=== PATIENT | male | born 1960 | race Caucasian/White ===

== ENCOUNTER 2024-01-11 01:13 | Emergency (ER) | payer MEDICARE, SELFPAY ==
--- NOTE | ~2024-01-11 | XR_ITS ---
EXAMINATION: XR chest 1V portable DATE: 01/11/2024 02:00 INDICATION: Weakness. TECHNIQUE: A single frontal view of the chest was obtained. COMPARISON: None. FINDINGS: There are airspace opacities in the lower lung zones. No pleural effusion or pneumothorax. The heart size is normal. IMPRESSION: 1. Airspace opacities in the lower lung zones, consistent with atelectasis versus pneumonia. Reviewed, dictated and finalized at location A. IMPRESSION: 1. Airspace opacities in the lower lung zones, consistent with atelectasis vers us pneumonia.
[2024-01-11 01:15] VITALS: BP 112/77; PULSE 103; RESP 17; TEMP 36.7; O2SAT 96
[2024-01-11] MEDS: SODIUM CHLORIDE 0.9% IV 1,000 ML 999 ML IV CONT (01:32)
[2024-01-11 01:38] LABS: Basophils Absolute Auto 0.1 K/mm3 (0.0-0.1); Basophils Percent Auto 0.8 % (0.2-1.2); Eosinophils Absolute Auto 0.1 K/mm3 (0-0.3); Eosinophils Percent Auto 0.7 % (0-4.4); Hematocrit 40.1 % (42.0-52.0); Hemoglobin 13.4 g/dL (14.0-18.0); Immature Granulocyte Absolute 0.15 K/mm3 (0.00-0.031); Immature Granulocyte Percent A 1.6 % (0-0.5); Lymphocytes Absolute Auto 3.17 K/mm3 (0.9-3.2); Lymphocytes Percent Auto 34.4 % (18.3-44.2); Mean Corpuscular HGB Conc 33.4 g/dl (32-36); Mean Corpuscular Hemoglobin 31.4 pg (26-34); Mean Corpuscular Volume 93.9 fl (80-100); Monocytes Absolute Auto 1.2 K/mm3 (0.1-0.6); Monocytes Percent Auto 12.7 % (2.6-8.5); Neutrophils Absolute Auto 4.6 K/mm3 (1.3-6.7); Neutrophils Percent Auto 49.8 % (45.5-73.1); Platelet Count Result 163 k/mm3 (150-375); Red Blood Count 4.27 M/mm3 (4.6-6.20); Red Cell Distribution Width 12.9 % (11.5-14.5); White Blood Count 9.2 K/mm3 (4.5-10.0)
[2024-01-11 01:48] LABS: Alanine Aminotransferase 35 U/L (6-50); Albumin Level 4.3 g/dL (3.5-5.1); Alkaline Phosphatase 82 U/L (38-126); Anion Gap 10 mmol/L (4-12); Aspartate Amino Transferase 25 U/L (17-59); Bilirubin,Total 0.5 mg/dL (0.2-1.3); Blood Urea Nitrogen 22 mg/dL (9-20); Calcium 9.9 mg/dL (8.4-10.2); Carbon Dioxide 27 mmol/L (22-30); Chloride 96 mmol/L (98-107); Estimated CRCL calculation 65 ml/min; Estimated Glomerular Filt Rate 56; Glucose 223 mg/dL (65-110); Magnesium 2.4 mg/dL (1.6-2.3); Potassium 4.7 mmol/L (3.4-5.0); Sodium 133 mmol/L (137-145)
[2024-01-11 02:13] LABS: Influenza A QL RT-PCR Negative (Negative); Influenza B QL RT-PCR Negative (Negative); SARS-CoV-2 RNA PCR Negative (Negative)
--- NOTE | 2024-01-11 02:22 | ED_ITS ---
HPI - General Adult General Chief complaint: Weakness Stated complaint: weakness Time Seen by Provider: 01/11/24 01:22 History of Present Illness HPI narrative: Patient is a 63-year-old male who presents to the emergency department this evening from his long term facility due to generalized weakness. Patient told the long term staff that he was feeling a little dizzy and weak. senior living staff states that patient usually gets like this after he takes his nightly medications but patient wanted to come to the emergency department and be evaluated. Patient was recently seen at [place] for the same symptoms and a full workup revealed no acute process. Patient is currently denying any pain including chest pain, denies any shortness of breath, denies any nausea vomiting or abdominal pain, denies any dysuria or hematuria, denies any headaches, room spinning sensation, near syncopal episodes, and is moving all 4 extremities spontaneously. There are no additional modifying, alleviating, or precipitating factors at this time. Related Data Home Medications Medication Instructions Recorded Confirmed haloperidol decanoate 100 mg/mL 50 mg IM .COMPLEX 04/10/19 09/22/21 intramuscular solution (Haldol Decanoate) lisinopril 20 mg tablet 20 mg PO DAILY 04/10/19 09/22/21 quetiapine 400 mg tablet 400 mg PO BID 04/10/19 09/22/21 Allergies Allergy/AdvReac Type Severity Reaction Status Date / Time No Known Allergies Allergy Unknown Verified 09/22/21 13:17 Review of Systems Review of Systems: All systems are reviewed and are negative unless stated otherwise in the HPI. [facility] Past Medical History Medical History Anxiety Glaucoma Hyperlipidemia Hypertension Obesity Peripheral neuropathy Poor historian Psychiatric care Skin cancer Type 2 diabetes mellitus with hyperglycemia Surgical History Surgical History History of nasal surgery removal of melanoma Family History Family History Other CHF (congestive heart failure), NYHA class I Diabetes mellitus Hypertension Social History Social History Smoking status: Never smoker Alcohol intake: never Substance use: never Exam Narrative: General: Alert, awake, afebrile, in no acute distress. HEENT: PERRL, no rhinorrhea, no post nasal drip, oropharynx clear. Cardiovascular: Regular rate and rhythm, no murmurs, rubs or gallops, no peripheral edema. Respiratory: Clear to auscultation bilaterally, no tachypnea, no wheezing, no rhonchi, no rubs, no respiratory distress. Abdomen: Soft, nontender, nondistended, no rebound, no guarding, no peritoneal signs. Musculoskeletal: No joint swelling or deformity, normal muscle tone, intact bilateral lower extremity hip flexion and knee extension, moving all 4 extremities without any difficulty. Skin: No rashes or petechia, no signs of infection. Neurological: Alert and oriented to person, place, and time. Follows all commands. No focal deficits, speech is clear and fluent. Course Vital Signs Vital signs: Vital Signs Temperature 98.0 F 01/11/24 01:15 Pulse Rate 103 H 01/11/24 01:15 Respiratory Rate 17 01/11/24 01:15 Blood Pressure 112/77 01/11/24 01:15 Pulse Oximetry 96 01/11/24 01:15 Oxygen Delivery Room Air 01/11/24 01:15 Temperature 98.0 F 01/11/24 01:15 Pulse Rate 73 01/11/24 04:21 Respiratory Rate 12 01/11/24 04:21 Blood Pressure 122/57 L 01/11/24 04:21 Pulse Oximetry 98 01/11/24 04:21 Oxygen Delivery Room Air 01/11/24 01:15 Medical Decision Making [facility] Narrative Medical decision making narrative: The patient was evaluated by myself in the emergency department. History is obtained from patient who is an independent historian and physical exam was performed. External medical records were reviewed at this time. IV was established and pertinent tests were ordered. Patient was administered 1 L IV fluid bolus with normal saline. Laboratory results obtained revealing no acute process. Urinalysis revealed ke tones otherwise unremarkable. Imaging studies obtained included CXR which was independently interpreted by me revealing air space opacities in the bilateral lower lung decker consistent with either atelectasis versus pneumonia. Patient currently denies any shortness of breath, any cough and is satting 98% on room air, suspicion for pneumonia is very low. Differential diagnosis considerations include dehydration, electrolyte derangements, acute viral syndrome, infectious process such as UTI/pneumonia. Comorbidities impacting this visit include none. I have evaluated and discussed social determinants of health with the patient that could potentially impact subsequent diagnosis and treatment plans. On repeat assessment of the patient, reevaluation revealed that the patient is doing well and is in no acute distress. Patient symptoms have improved since he arrived to our emergency department. Repeat vital signs were all reviewed and noted to be stable. Differential diagnosis and treatment plan were discussed with the patient at bedside. Patient agrees with discussion and after shared medical decision making agrees with discharge. All questions were answered to the patient's satisfaction. Patient will follow up with his PCP in 3-5 days. Patient was provided with strict return precautions and instructed to return to the emergency department if any new or worsening symptoms develop. The patient was discharged in stable condition. Vital Signs Vital Signs: Vital Signs Temperature 98.0 F 01/11/24 01:15 Pulse Rate 103 H 01/11/24 01:15 Respiratory Rate 17 01/11/24 01:15 Blood Pressure 112/77 01/11/24 01:15 Pulse Oximetry 96 01/11/24 01:15 Oxygen Delivery Room Air 01/11/24 01:15 Temperature 98.0 F 01/11/24 01:15 Pulse Rate 73 01/11/24 04:21 Respiratory Rate 12 01/11/24 04:21 Blood Pressure 122/57 L 01/11/24 04:21 Pulse Oximetry 98 01/11/24 04:21 Oxygen Delivery Room Air 01/11/24 01:15 Lab Data 01/11/24 01:30 01/11/24 01:30 Labs: Lab Results 01/11/24 01/11/24 Range/Units 01:30 03:38 WBC 9.2 (4.5-10.0) K/mm3 RBC 4.27 L (4.6-6.20) M/mm3 Hgb 13.4 L (14.0-18.0) g/dL Hct 40.1 L (42.0-52.0) % MCV 93.9 (80-100) fl MCH 31.4 (26-34) pg MCHC 33.4 (32-36) g/dl RDW 12.9 (11.5-14.5) % Plt Count 163 (150-375) k/mm3 MPV 12.0 H (7.4-10.4) fl Immature Gran % (Auto) 1.6 H (0-0.5) % Neut % (Auto) 49.8 (45.5-73.1) % Lymph % (Auto) 34.4 (18.3-44.2) % [place] % (Auto) 12.7 H (2.6-8.5) % Eos % (Auto) 0.7 (0-4.4) % Baso % (Auto) 0.8 (0.2-1.2) % Lymph # (Auto) 3.17 (0.9-3.2) K/mm3 [place] # (Auto) 1.2 H (0.1-0.6) K/mm3 Eos # (Auto) 0.1 (0-0.3) K/mm3 Baso # (Auto) 0.1 (0.0-0.1) K/mm3 Abs Immat Gran (auto) 0.15 H (0.00-0.031) K/mm3 Absolute Neuts (auto) 4.6 (1.3-6.7) K/mm3 Absolute Nucleated RBC 0.000 (0.0-0.012) K/mm3 Nucleated RBC % 0.0 (0.0-0.2) % Sodium 133 L (137-145) mmol/L Potassium 4.7 (3.4-5.0) mmol/L Chloride 96 L (98-107) mmol/L Carbon Dioxide 27 (22-30) mmol/L Anion Gap 10 (4-12) mmol/L BUN 22 H (9-20) mg/dL Creatinine 1.30 (0.7-1.3) mg/dL Estim Creat Clear Calc 65 ml/min Estimated GFR 56 L (59 - ) Glucose 223 H (65-110) mg/dL Calcium 9.9 (8.4-10.2) mg/dL Magnesium 2.4 H (1.6-2.3) mg/dL Total Bilirubin 0.5 (0.2-1.3) mg/dL AST 25 (17-59) U/L ALT 35 (6-50) U/L Alkaline Phosphatase 82 (38-126) U/L Total Protein 8.0 (6.3-8.2) g/dL Albumin 4.3 (3.5-5.1) g/dL Urine Color Yellow (Yellow) Urine Appearance Clear (Clear) Urine pH 5.5 (5.0-9.0) Ur Specific [place] 1.030 (1.001-1.035) Urine Protein Negative (Negative) mg/dL Urine Glucose (UA) 3+ H (Negative) mg/dL Urine Ketones Trace H (Negative) mg/dL Ur Blood (Man) Negative (Negative) Urine Nitrate Negative (Negative) Urine Bilirubin Negative (Negative) Urine Urobilinogen 1.0 (<2.0) mg/dL Leukocyte Esterase Rfl Negative (Negative) MONA/UL Influenza A (RT-PCR) Negative (Negative) Influenza B (RT-PCR) Negative (Negative) SARS-CoV-2 RNA (RT-PCR) Negative (Negative) Discharge Plan Discharge Clinical Impression: Generalized weakness, Dehydration Patient Disposition: SNF Condition: Improved Instructions: Dehydration (DC), Weakness (ED) Additional Instructions: Please follow-up with your family doctor within the next 3-5 days. Return to the ED if any new or worsening symptoms develop. Prescriptions: No Action lisinopril 20 mg tablet 20 mg PO DAILY quetiapine 400 mg tablet 400 mg PO BID haloperidol decanoate [Haldol Decanoate] 100 mg/mL solution 50 mg IM .COMPLEX Rx Instructions: 50 mg IM every 4 weeks; (DME) lancets [OneTouch Delica Lancets] 33 gauge misc See Rx Instructions .ROUTE .MEDSUPPLY Qty: 200 3RF Rx Instructions: Use to check BS 2 times daily Jardiance 25 mg tablet 25 mg PO DAILY Qty: 30 1RF metformin 1,000 mg tablet 1,000 mg PO BID 90 Days Qty: 180 1RF Rx Instructions: WITH MEALS icosapent ethyl [Vascepa] 1 gram capsule 2 g PO BID 90 Days Qty: 360 3RF simvastatin 40 mg tablet 40 mg PO QPM 90 Days Qty: 90 3RF Rybelsus 14 mg tablet 14 mg PO DAILY Qty: 30 0RF Follow-up/Referrals: Fernando Rueda MD [Physician] - 3 Days UNKNOWN,DOCTOR [Primary Care Provider] - Time of Disposition: 03:48
[2024-01-11 03:40] VITALS: BP 150/67; PULSE 79; RESP 10; O2SAT 100
[2024-01-11 03:43] LABS: Add Urine Microscopic? NO; Appearance Urine Clear (Clear); Bilirubin Urine Negative (Negative); Blood Urine Negative (Negative); Color Urine Yellow (Yellow); Glucose Urine UA 3+ mg/dL (Negative); Ketones Urine Trace mg/dL (Negative); Leukocyte Esterase Ur Negative LEU/UL (Negative); Nitrate Urine Negative (Negative); Protein Urine Negative (Negative); pH Urine 5.5 (5.0-9.0)
[2024-01-11 04:21] VITALS: BP 122/57; PULSE 73; RESP 12; O2SAT 98
== END 2024-01-11 05:06 ==
PROVIDERS: Emergency Provider Emergency Medicine
DX: R53.1 Weakness (principal); E86.0 Dehydration; E78.5 Hyperlipidemia, unspecified; I10 Essential (primary) hypertension; E66.9 Obesity, unspecified; Z68.36 Body mass index [BMI] 36.0-36.9, adult; E11.9 Type 2 diabetes mellitus without complications; Z85.820 Personal history of malignant melanoma of skin; Z20.822 Contact with and (suspected) exposure to COVID-19
CPT/HCPCS: 36415; 71045; 80053; 81003; 83735; 85025; 87636; 96360; 99283; J7030